=== PATIENT | male | born 1980 | race Caucasian/White ===

== ENCOUNTER 2021-01-09 17:42 | Emergency (ER) | payer OTHER ==
[2021-01-09 18:03] VITALS: BP 123/72
[2021-01-09] MEDS ORDERED: ALBUTEROL 1 PUFF INH STA (18:29)
--- NOTE | 2021-01-09 18:32 | ED Physician Documentation ---
History of Present Illness - Stated complaint Stated Complaint: C + - Chief complaint Chief Complaint: Resp - Additonal information Additional information: 40-year-old male presents the emergency department seeking evaluation of his COVID-19 infection. He tested positive on the , but began having symptoms on the . Testing was completed on the [facility]. This gentleman is fully vaccinated for COVID-19 as of May 2020 with the Moderna vaccine. Patient reports that 4 days ago when he got tested he had begun to develop a cough and had a runny nose as well as a sore throat. Today he endorses loss of taste and smell. He is otherwise very well-appearing. Denies any pertinent past medical history. No history of diabetes or immune compromise. No lung or cardiac issues. His BMI is 24. he is not a smoker. This gentleman is not a candidate for MAB/Regeneron therapy. Review of Systems Constitutional: denies: Fever, Chills Eyes: reports: Reviewed and negative Ears: reports: Reviewed and negative Nose: reports: Rhinorrhea / runny nose, Congestion Throat: reports: Sore throat Respiratory: reports: Cough, Reviewed and negative. denies: Dyspnea, Hemoptysis, Wheezing GI: denies: Abdominal Pain, Abdominal Swelling, Nausea, Vomiting : denies: Dysuria, Frequency, Hesitancy Skin: reports: Reviewed and negative Musculoskeletal: reports: Reviewed and negative PD PAST MEDICAL HISTORY - Present Medications Home Medications: Ambulatory Orders Medication Instructions Recorded Confirmed Albuterol Sulf [Ventolin Hfa 1 - 2 puffs INH Q4HR PRN #1 inhaler 01/09/21 Inhaler] Benzonatate [Tessalon] 100 mg PO TID PRN #30 cap 01/09/21 Cyclobenzaprine [Flexeril] 10 mg PO TID PRN 01/09/21 01/09/21 Diclofenac Sodium 25 mg PO DAILY PRN 01/09/21 01/09/21 Famotidine [Pepcid] 20 mg PO BID 01/09/21 01/09/21 - Allergies Allergies/Adverse Reactions: Allergies Allergy/AdvReac Type Severity Reaction Status Date / Time No Known Drug Allergies Allergy Verified 01/09/21 17:49 PD ED PE NORMAL - General General: Alert and oriented X 3, No acute distress - HEENT HEENT: Atraumatic, Moist mucous membranes. No: Pharynx benign (Mild posterior oropharynx erythema without exudate. Uvula is midline.) - Neck Neck: Supple, no meningeal sign, No adenopathy - Cardiac Cardiac: RRR, No murmur - Respiratory Respiratory: No respiratory distress, Clear bilaterally - Abdomen Abdomen: Normal bowel sounds, Soft, Non tender - Back Back: No CVA TTP, No spinal TTP Results - Vitals Vitals: Vital Signs - 24 hr 01/09/21 01/09/21 17:47 18:50 Temperature 36.4 C L Heart Rate 60 68 Respiratory 16 16 Rate Blood Pressure 123/72 O2 Saturation 100 Oxygen O2 Source Room air - Rads (name of study) CXR Radiology: Final report received (no acute cardiopulmonary process) Departure - Departure Disposition: Home, Self Care Clinical Impression: COVID-19 Condition: Stable Record reviewed to determine appropriate education?: Yes Prescriptions: Albuterol Sulf [Ventolin Hfa Inhaler] 1 - 2 puffs INH Q4HR PRN #1 inhaler PRN Reason: Shortness Of Air/Wheezing Benzonatate [Tessalon] 100 mg PO TID PRN #30 cap PRN Reason: Cough Comments: Lowell you were seen today in the emergency department for evaluation of your COVID-19 infection. Your prescriptions have been electronically transmitted to the [facility] in [place]. Your vital signs today in the emergency department are unremarkable and normal for age. Your oxygen levels were 100%. When we listen to your lungs you sounded clear in all lung kelly. Your chest x-ray is normal for age. There are no findings to suggest a pneumonia. Due to your excellent health and body size you are not a candidate for monoclonal antibody therapy. Remdesivir is an antiviral medication that is reserved only for patients that are admitted to the hospital for COVID-19 infection. You also would not benefit from a course of steroids at this time. I am prescribing the albuterol that you can use 4-6 times a day to help with any cough and chest tightness you have. I am prescribing Tessalon Perles also to help with the cough. Drinking honey teas or your swallowing a teaspoon of honey can help calm the cough and soothe your sore throat. It is important that you remain in isolation for at least 10 days from the onset of your symptoms. If at any point you feel that your symptoms are worsening, you have oxygen levels less than 90%, feel severe chest pain or shortness of air then please return immediately to the emergency department for second evaluation.
--- NOTE | 2021-01-09 18:46 | XRAY Report ---
PROCEDURE: Chest 1 View X-Ray INDICATIONS: chest pain TECHNIQUE: One view of the chest was acquired. COMPARISON: None FINDINGS: Surgical changes and devices: None. Lungs and pleura: No pleural effusions or pneumothorax. Lungs are clear. Mediastinum: Mediastinal contours appear normal. Heart size is normal. Bones and chest wall: No suspicious bony lesions. Overlying soft tissues appear unremarkable. IMPRESSION: No acute cardiopulmonary disease process. Reviewed by: Karla Mcdaniel MD, PhD on 01/09/2021 6:44 PM PDT Approved by: Karla Mcdaniel MD, PhD on 01/09/2021 6:44 PM PDT Station ID: [id number]
== END 2021-01-09 19:17 | disposition home or self-care (01) ==
LOC: ED 17:42
DX: U07.1 COVID-19 (principal); R05.9 Cough, unspecified; J02.9 Acute pharyngitis, unspecified
CPT/HCPCS: 94640; 99283